=== PATIENT | female | born 1965 | race Caucasian/White ===

== ENCOUNTER 2023-05-01 21:27 | Emergency (ER) | payer OTHER ==
[~2023-05-01] VITALS: Ht 157.5 cm; Wt 88.5 kg
[~2023-05-01 21:27] MED LIST: ASPI81EC98 PO; [UNRECOGNIZED DRUG - REMARK]
[2023-05-01 21:49] VITALS: BP 157/90; PULSE 93; RESP 20; TEMP 98; O2SAT 98
[2023-05-02] MEDS ORDERED: diazePAM 5 MG TAB PO ONE (02:05)
[2023-05-02] MEDS ORDERED: KETOROLAC 30 MG/ML VIAL IM ONE (02:05)
[2023-05-02] MEDS ORDERED: CYCL-711 PO (02:51)
[2023-05-02] MEDS ORDERED: ACET-10509 PO (02:51)
[2023-05-02 03:00] VITALS: BP 157/90; PULSE 93; RESP 20; TEMP 98; O2SAT 98
== END 2023-05-02 03:00 | disposition home or self-care (01) ==
LOC: MED 21:27
DX: S39.012A Strain of muscle, fascia and tendon of lower back, initial encounter (principal); I10 Essential (primary) hypertension; Z79.899 Other long term (current) drug therapy; V49.88XA Car occupant (driver) (passenger) injured in other specified transport accidents, initial encounter; Y93.89 Activity, other specified; Y92.89 Other specified places as the place of occurrence of the external cause; Y99.8 Other external cause status
CPT/HCPCS: 71046; 72100; 96372; 99284; J1885